=== PATIENT | female | born 1950 | race Caucasian/White ===

== ENCOUNTER → 2020-06-04 | Outpatient (CLI) | payer OTHER | LOC: KOH-I 11:30 | DX: R06.00 Dyspnea, unspecified (principal); K44.9 Diaphragmatic hernia without obstruction or gangrene | CPT/HCPCS: 71046 ==

== ENCOUNTER → 2020-08-01 | Outpatient (CLI) | payer OTHER | LOC: HEART 5 09:12 | DX: I08.3 Combined rheumatic disorders of mitral, aortic and tricuspid valves (principal); I27.20 Pulmonary hypertension, unspecified | CPT/HCPCS: 93306 ==

== ENCOUNTER → 2020-09-19 | Outpatient (CLI) | payer OTHER | LOC: HEART 5 13:56 | DX: I49.1 Atrial premature depolarization (principal) ==

== ENCOUNTER → 2021-11-05 | Outpatient (CLI) | payer OTHER | LOC: ECHO 08:21 → HEART 5 08:30 → ECHO 08:30 → NM 09:00 | DX: I20.8 Other forms of angina pectoris (principal); I34.0 Nonrheumatic mitral (valve) insufficiency; R06.02 Shortness of breath | CPT/HCPCS: ECHO; 78452; 93017; 93306; A9502; J2785 ==